=== PATIENT | female | born 1965 ===

== ENCOUNTER 2018-07-03 03:10 | Inpatient (IN) | payer BC ==
[2018-07-03] MEDS ORDERED: Famotidine/PF 20 mg/2ml Vial ONE (03:42)
[2018-07-03] MEDS ORDERED: Ketorolac Tromethamine 30 MG/ML VIAL ONE (03:42)
[2018-07-03 04:03] LABS: #Basophils 0.1 thou/uL (0.0-0.2); #Eosinphils 0.3 thou/uL (0.0-0.7); #Lymphocytes 2.8 thou/uL (1.20-3.40); #Monocytes 1.2 thou/uL (0.11-0.59); %Basophils 0.7 % (0.0-1.0); %Eosinophils 1.9 % (0.0-10.0); %Lymphocytes 17.1 % (21.0-51.0); %Monocytes 7.2 % (0.0-10.0); %Neutrophils 73.1 % (42.0-75.0); Hemoglobin 15.3 g/dL (12.0-16.0); Mean Corpuscular Volume 96.9 fL (78.0-98.0); Mean Platelet Volume 8.5 fL (7.4-10.4); Platelet Count 217 thou/uL (130-400); RBC Distribution Width 11.9 % (11.5-14.5); Red Blood Cell (RBC) Count 4.64 mill/uL (4.20-5.40); White Blood Cell (WBC) Count 16.4 thou/uL (4.8-10.8)
[2018-07-03 04:13] LABS: ALT (SGPT) 25 U/L (8-55); AST (SGOT) 18 U/L (5-34); Albumin 4.2 g/dL (3.5-5.0); Alkaline Phosphatase 77 U/L (40-150); Anion Gap 16 mmol/L (10-20); BUN (Urea Nitrogen) 17 mg/dL (9.8-20.1); Bilirubin, Direct 0.2 mg/dL (0.1-0.3); Bilirubin, Total 0.4 mg/dL (0.2-1.2); Calc. Creatinine Clearance 0 mL/min (70-130); Calcium 9.8 mg/dL (7.8-10.44); Carbon Dioxide 25 mmol/L (22-29); Chloride 103 mmol/L (98-107); Estimated GFR-MDRD 69; Glucose 196 mg/dL (70-105); Potassium 3.9 mmol/L (3.5-5.1); Sodium 140 mmol/L (136-145)
[2018-07-03 04:46] LABS: Lipase 11020 U/L (8-78)
[2018-07-03] MEDS ORDERED: Ondansetron PF 4 MG/2 ML Vial IVP PRN (06:00)
[2018-07-03] MEDS ORDERED: Ondansetron ODT 4 MG TAB SL PRN (06:00)
[2018-07-03] MEDS ORDERED: Morphine 4 MG/ML VIAL SLOW IVP PRN ×2 (06:00→18:41)
--- NOTE | 2018-07-03 08:20 | ULT ---
PRELIMINARY REPORT/[facility]/EMERGENTY AFTER-HOURS PROCEDURE US Abdomen Limited, Right Upper Quadrant EXAM DATE/TIME: 07/03/2018 5:25 AM CLINICAL HISTORY: 53 years old, female; Pain and signs and symptoms; Nausea and vomiting; Abdominal pain; Other: Ruq pa in that radiates to back; Additional info: Dx; Pancreatitis TECHNIQUE: Real-time ultrasound of the abdomen with image documentation. Examination was focused on the right up per quadrant. COMPARISON: No relevant prior studies available. FINDINGS: Liver: Mildly enlarged with heterogeneous increased echogenicity consistent with steatosis. 3.2 cm ro und hypoechoic lesion posteriorly in the right lobe, evaluation limited by depth and liver echogenici ty. Gallbladder: Unremarkable. No stones identified. Normal wall thickness. Common bile duct: Common duct measuring 8mm. Pancreas: Mostly obscured by bowel gas. Visualized portion grossly unremarkable. Right kidney: Subcentimeter probable cyst. No hydronephrosis. IMPRESSION: 1. Mild biliary ductal dilatation. 2. Hepatic steatosis. Incompletely evaluated 3.2 cm hypoechoic lesion in the right lobe. Thank you for allowing us to participate in the care of your patient. Dictated and Authenticated by: Ar Mcdermott MD 07/03/2018 6:00 AM Central Time ([place] & [place]) FINAL REPORT EMERGENCY AFTER HOURS STUDY ULTRASOUND ABDOMEN LIMITED: (RIGHT UPPER QUADRANT) DATE: 07-03-18 TIME: 5:42 A.M. HISTORY: 53-year-old female with right upper quadrant abdominal pain, nausea, vomiting. FINDINGS: Gallbladder: There is sludge in the gallbladder. This was not mentioned in the preliminary report by [facility]. No wall thickening or gallstones identified. No pericholecystic fluid. Common duct: Dilated to 8 mm. Liver: Diffusely increased echogenicity consistent with fatty liver. 3.2 cm round well circumscribed hypoechoic lesion in the posterior aspect of the right lobe. Pancreas: Obscured. Right kidney: Tiny cysts. No hydronephrosis. No major disagreement with the preliminary report by [facility]. Code QA. IMPRESSION: 1. Biliary ductal dilation, raising the possibility of obstruction of the common duct. 2. Hepatic steatosis. 3. A 3.2 cm hypoechoic lesion in the right lobe of the liver. 4. Recommend further evaluation with CT of abdomen with and without contrast (liver mass protocol), t o evaluate for obstructing mass, possibly at the head of the pancreas. HEMALATHA Sharma POS: MENDOZA
[2018-07-03] MEDS: Ketorolac Tromethamine 30 MG/ML VIAL IVP PRN ×3 (09:34→21:22)
[2018-07-03] MEDS: Lactated Ringer's 1,000 ML IV SCH ×3 (09:36→21:20)
[2018-07-03 10:07] VITALS: BMI 28.2
--- NOTE | 2018-07-03 18:01 | CON ---
DATE OF CONSULTATION: 07/03/2018 REASON FOR CONSULTATION: Pancreatitis. HISTORY OF PRESENT ILLNESS: Zoey Small is a 53-year-old woman with a history of diabetes and hypertension, and hyperlipidemia. She has no prior history of significant gastrointestinal, liver, or pancreatic disease. She was admitted to the hospital early this morning with her first episode of acute pancreatitis. She states that she was in her normal state of health until about 10 o'clock last night when she had sudden onset and then gradually worsening abdominal pain. This started in the right upper quadrant, but quickly spread to involve the epigastrium and entire upper abdomen, was associated with nausea and several episodes of nonbloody emesis. The pain is constant, but with significant exacerbations and prompted her presentation. She was found to have an elevated lipase level with normal LFTs and abdominal ultrasound showed normal gallbladder with no stones or sludge, but mild common bile duct dilation to 8 mm. She is currently doing very well after receiving analgesics. She is getting 200 mL of IV fluids per hour and her pain level is significantly decreased. She says this has never happened before. She has no prior history of gallbladder issues. She does drink alcohol but just 2 to 3 drinks per day. She does smoke cigarettes as well 1 pack per day. REVIEW OF SYSTEMS: Full review of systems including constitutional, head, eyes, ears, nose, throat, GI, , cardiovascular, respiratory, musculoskeletal, and neurologic systems are negative except as noted in the HPI. PAST MEDICAL HISTORY: Diabetes, hyperlipidemia, hypertension, anxiety, and . SOCIAL HISTORY: She does smoke 1 pack cigarettes per day. She will drink a couple of drinks most days of the week, usually beer. ALLERGIES: SULFA. OUTPATIENT MEDICATIONS: 1. Metformin. 2. Aspirin 81 mg daily. 3. Simvastatin. 4. Zoloft. 5. Lisinopril/hydrochlorothiazide. PHYSICAL EXAMINATION: VITAL SIGNS: Temperature 97.7, pulse 69, blood pressure 128/77, and 95% oxygen saturation on room air. GENERAL: A 53-year-old woman lying in bed comfortably, in no distress. SKIN: No jaundice. No rashes were palpable. EYES: No scleral icterus. Extraocular movements intact. ENT: Mucous membranes moist. No oral lesions. LYMPH: No submandibular or supraclavicular lymphadenopathy. THYROID: Nontender to palpation. HEART: Regular rate and rhythm. LUNGS: Clear to auscultation bilaterally. ABDOMEN: Bowel sounds are hypoactive, but present. The abdomen is soft and tender to palpation in the upper abdomen. No guarding or rebound tenderness. EXTREMITIES: No peripheral edema. VESSELS: Radial pulses 2+ bilaterally. NEUROLOGIC: Cranial nerves 2 to 12 intact bilaterally. No focal deficits. LABORATORY STUDIES: WBC 16.4, hemoglobin 15.3, and platelets 217. Sodium 140, potassium 3.9, BUN 17, creatinine 0.85, and glucose 196. LFTs all normal with total bilirubin 0.4, alkaline phosphatase 77, AST 18, ALT 25, albumin 4.2, and lipase is elevated to 11,020. IMAGING STUDIES: Abdominal ultrasound demonstrates normal gallbladder with no stones identified. Normal wall thickness. The common bile duct measures 8 mm. There is some hepatomegaly with steatosis and there is a 3.2 cm hypoechoic lesion posteriorly in the right lobe with limited evaluation. ASSESSMENT AND PLAN: 1. Acute pancreatitis, first episode, likely secondary to alcohol. 2. Biliary dilation, with normal LFTs. This is the patient's first episode of pancreatitis. All of her lab and clinical parameters are very favorable. Hopefully, this will be a mild self-limited episode and she will continue to do well with supportive care. Agree with the IV fluids, antiemetics and analgesics as needed. Regarding the etiology of her pancreatitis, I would favor probably alcohol-induced pancreatitis. Of note, she is also taking a thiazide diuretic and thought should be given to discontinuing this. I do note the mild biliary dilation 8 mm, but also note LFTs are normal, so this does not really fit with biliary pancreatitis. That being said, given the biliary dilation, I think it would be reasonable to get a magnetic resonance cholangiopancreatography, which would be more sensitive for an obstructing common duct stone. I have gone ahead and ordered this. Magnetic resonance cholangiopancreatography may also shed light on this indeterminate small liver lesion. Thank you for the consultation. GI will follow along. Job ID: [id number]
[2018-07-03] MEDS ORDERED: Ondansetron PF 4 MG/2 ML Vial SLOW IVP PRN (18:42)
--- NOTE | 2018-07-03 19:24 | MRI ---
MRI OF THE ABDOMEN WITHOUT CONTRAST 07/03/18 INDICATION: History of pancreatitis, common bile duct dilatation, concern for common bile duct stone. COMPARISON: Right upper quadrant ultrasound dated 07/03/18 at 5:25 a.m. TECHNIQUE: Multiplanar and multisequence MR images were obtained of the abdomen without IV contrast utilizing MR CP protocol. FINDINGS: There is moderate dilatation of the common bile duct measuring up to 1 cm. There is some smooth taper ing of the distal aspect common bile duct near the ampulla. No visible intraluminal stone is evident. No intraluminal stone is evident within the gallbladder. There is mild intrahepatic biliary ductal d ilatation. There is prominent edema within the peripancreatic retroperitoneal space. There is a 2.8 cm right adrenal adenoma which likely corresponds to the lesion described in the right hepatic lobe. There is prominent fatty infiltration of the liver. S mall suspected cysts seen involving the inferior pole of the right kidney. Spleen is normal appearing . Bone marrow signal intensity is normal appearing. IMPRESSION: 1. Moderate dilatation of the common bile duct with mild intrahepatic biliary ductal dilatation. No visible CBD stone is evident. There is some smooth tapering of the distal common bile duct seen a t the level of the ampulla, some of which may be related to edematous changes from the pancreatitis p resent. No drainable fluid collection is grossly evident. No cholelithiasis. 2. Right adrenal adenoma. This corresponds to the previously described right hepatic lobe lesion seen on the right upper quadrant ultrasound performed earlier on 07/03/18. 3. Fatty liver. 4. Small right renal cysts. POS: OFF
--- NOTE | 2018-07-03 21:30 | HP ---
CHIEF COMPLAINT: Abdominal pain. HISTORY OF PRESENT ILLNESS: Zoey is a 53-year-old female patient, who presented here with severe abdominal pain that started at the right flank and got across the middle of abdomen, severe on a scale of 10/10, associated with vomiting. The patient denies any significant alcohol consumption prior to this episode of pain. Has never had these episodes of pain. On evaluation in the ER, the patient was noted with severely elevated lipase at 11,000. The patient was then diagnosed with pancreatitis and sent over to us for further management. PAST MEDICAL HISTORY: Significant for hypertension, diabetes, dyslipidemia, and anxiety. MEDICATIONS: Of note, the patient is on hydrochlorothiazide. Medications reviewed and as documented on [employer]. ALLERGIES: TO SULFA. FAMILY HISTORY: No family history of pancreatic disease. SOCIAL HISTORY: The patient is . The patient use alcohol, positive tobacco usage. REVIEW OF SYSTEMS: As documented in the body of history. All the other systems were reviewed and found not to be significantly related to presenting illness. PHYSICAL EXAMINATION: GENERAL: The patient was found not to be in any obvious distress. VITAL SIGNS: Following vital signs; afebrile temperature 97.7, pulse 69, respiratory rate of 20, O2 saturation of 95% with blood pressure 128/77. HEENT: Unremarkable. CARDIOVASCULAR SYSTEM: First and second heart sounds were heard. RESPIRATORY SYSTEM: Clear to auscultation. DIGESTIVE SYSTEM: Revealed a benign abdomen with positive bowel sounds. EXTREMITIES: No peripheral edema. SKIN: No new gross rash. LYMPHATICS: No peripheral lymphadenopathy. GASTROINTESTINAL: Reveals positive bowel sounds with some areas of tenderness, otherwise unremarkable. IMPRESSION: 1. Acute pancreatitis, query cause, possibly related to hydrochlorothiazide versus other potential structural anomaly. 2. Hypertension. 3. Dyslipidemia. 4. Diabetes mellitus. 5. Tobacco dependence. PLAN: 1. Discontinue hydrochlorothiazide. 2. MRCP per Gastroenterology to further evaluate the pancreatic head and the biliary system. 3. The patient to remain n.p.o. for now. 4. IV fluids. 5. Further management to be dependent on the clinical course. Job ID: [id number]
[2018-07-04] MEDS: Lactated Ringer's 1,000 ML IV SCH ×4 (02:15→23:31)
[2018-07-04] MEDS: Ketorolac Tromethamine 30 MG/ML VIAL IVP PRN (03:43)
[2018-07-04] MEDS ORDERED: Ondansetron PF 4 MG/2 ML Vial IVP PRN (07:34)
[2018-07-04] MEDS ORDERED: Eucerin (Mineral Oil/Petrolatum,White) 30 gm Jar TOP PRN (07:34)
[2018-07-04] MEDS ORDERED: Artificial Tears 18 DROP/0.9 ML EA EYE PRN (07:34)
[2018-07-04] MEDS ORDERED: Bisacodyl 10 MG SUPP PR PRN (07:34)
[2018-07-04] MEDS ORDERED: Ondansetron ODT 4 MG TAB PO PRN (07:34)
[2018-07-04] MEDS ORDERED: Sodium Chloride 0.65% Nasal 44 ML BOT EA NARE PRN (07:34)
[2018-07-04] MEDS ORDERED: Acetaminophen 650 MG Suppository PR PRN (07:34)
[2018-07-04] MEDS ORDERED: hydrALAZINE 20 MG/ML VIAL SLOW IVP PRN (07:34)
[2018-07-04] MEDS ORDERED: Dextrose 5% in Water 1,000 ML IV PRN (07:36)
[2018-07-04] MEDS ORDERED: Dextrose 50% Abboject 50 ML SYRINGE SLOW IVP PRN (07:36)
[2018-07-04] MEDS ORDERED: HumaLOG 300 UNITS/3 ML VIAL SC PRN ×2 (07:36)
[2018-07-04] MEDS ORDERED: Ketorolac Tromethamine 30 MG/ML VIAL IVP PRN (07:37)
[2018-07-04 08:35] LABS: ALT (SGPT) 16 U/L (8-55); AST (SGOT) 10 U/L (5-34); Albumin 3.4 g/dL (3.5-5.0); Alkaline Phosphatase 67 U/L (40-150); Anion Gap 12 mmol/L (10-20); BUN (Urea Nitrogen) 14 mg/dL (9.8-20.1); Bilirubin, Total 0.7 mg/dL (0.2-1.2); Calc. Creatinine Clearance 123 mL/min (70-130); Calcium 8.8 mg/dL (7.8-10.44); Carbon Dioxide 23 mmol/L (22-29); Chloride 107 mmol/L (98-107); Estimated GFR-MDRD Greater than 90; Globulin 1.9 g/dL (2.4-3.5); Glucose 126 mg/dL (70-105); Potassium 3.9 mmol/L (3.5-5.1); Protein, Total 5.3 g/dL (6.0-8.3); Sodium 138 mmol/L (136-145)
[2018-07-04 08:36] LABS: CRP (Inflammatory) 3.48 mg/dL (= or < 0.5); Cholesterol 150 mg/dl (< 200 Desired); HDL Cholesterol 30 mg/dL (>60 Neg Risk); LDL Cholesterol, Calculated 88 mg/dL; Lipase 212 U/L (8-78); Magnesium 1.7 mg/dL (1.6-2.6); Phosphorus 4.1 mg/dL (2.3-4.7); Triglycerides 158 mg/dL (Less than 150)
[2018-07-04] MEDS: Pantoprazole 40 MG VIAL IVP SCH (08:44)
[2018-07-04 08:46] LABS: #Eosinphils 0.2 thou/uL (0.0-0.7); #Lymphocytes 2.3 thou/uL (1.20-3.40); #Monocytes 0.6 thou/uL (0.11-0.59); %Basophils 0.6 % (0.0-1.0); %Eosinophils 2.4 % (0.0-10.0); %Lymphocytes 28.5 % (21.0-51.0); %Monocytes 7.5 % (0.0-10.0); Hemoglobin 12.2 g/dL (12.0-16.0); Mean Corpuscular HGB CONC 33.6 g/dL (32.0-36.0); Mean Corpuscular Hemoglobin 33.2 pg (27.0-31.0); Mean Corpuscular Volume 98.8 fL (78.0-98.0); Mean Platelet Volume 8.4 fL (7.4-10.4); Platelet Count 186 thou/uL (130-400); RBC Distribution Width 11.2 % (11.5-14.5); Red Blood Cell (RBC) Count 3.68 mill/uL (4.20-5.40); White Blood Cell (WBC) Count 8.2 thou/uL (4.8-10.8)
--- NOTE | 2018-07-04 10:52 | PDOC.PN ---
- Subjective Encounter Start Date: 07/04/18 Encounter Start Time: 08:20 -: old records requested/rev Patient seen and examined. No new complaints. No overnight events pt feels better, less abdominal pain, - Objective MAR Reviewed: Yes Vital Signs & Weight: Vital Signs (12 hours) Temp Pulse Resp BP Pulse Ox 07/04/18 08:45 93 L 07/04/18 07:31 97.8 F 75 20 120/70 93 L 07/04/18 04:00 97.8 F 62 18 136/74 95 07/04/18 00:00 98.1 F 71 17 149/78 H 94 L Weight Weight 175 lb Result Diagrams: 07/04/18 07:39 07/04/18 07:39 Radiology Reviewed by me: Yes (abdomen MRI noted) Phys Exam - Physical Examination Constitutional: NAD HEENT: PERRLA, moist MMs, sclera anicteric Neck: no JVD, supple Respiratory: no wheezing, no rales, no rhonchi Cardiovascular: RRR, no significant murmur, no rub Gastrointestinal: soft, non-tender, no distention, positive bowel sounds Musculoskeletal: no edema, pulses present Neurological: non-focal, normal sensation, moves all 4 limbs Psychiatric: normal affect, A&O x 3 Skin: no rash, normal turgor Dx/Plan (1) Acute pancreatitis Code(s): K85.90 - ACUTE PANCREATITIS WITHOUT NECROSIS OR INFECTION, UNSP Status: Acute Qualifiers: Pancreatitis type: alcohol induced (2) Dilation of biliary tract Code(s): K83.8 - OTHER SPECIFIED DISEASES OF BILIARY TRACT Status: Acute (3) Diabetes type 2, controlled Code(s): E11.9 - TYPE 2 DIABETES MELLITUS WITHOUT COMPLICATIONS Status: Chronic (4) Dyslipidemia Code(s): E78.5 - HYPERLIPIDEMIA, UNSPECIFIED Status: Chronic (5) Hypertension Code(s): I10 - ESSENTIAL (PRIMARY) HYPERTENSION Status: Chronic (6) Alcohol abuse Code(s): F10.10 - ALCOHOL ABUSE, UNCOMPLICATED Status: Chronic - Plan cont current plan of care, incentive spirometry * pt has improvement, will start clear liquid and then full liquid today * tomorrow repeat labs and advance to regular diet * medication reviewed as below * symptomatic treatment * spoke with GI * overall stable and improving * counselled to avoid alcohol. * home meds reconciled * DC HCTZ Review of Systems - Review of Systems ENT: negative: Ear Pain, Ear Discharge, Nose Pain, Nose Discharge, Nose Congestion, Mouth Pain, Mouth Swelling, Throat Pain, Throat Swelling, Other Respiratory: negative: Cough, Dry, Shortness of Breath, Hemoptysis, SOB with Excertion, Pleuritic Pain, Sputum, Wheezing Cardiovascular: negative: chest pain, palpitations, orthopnea, paroxysmal nocturnal dyspnea, edema, light headedness, other Gastrointestinal: negative: Nausea, Vomiting, Abdominal Pain, Diarrhea, Constipation, Melena, Hematochezia, Other Genitourinary: negative: Dysuria, Frequency, Incontinence, Hematuria, Retention , Other Musculoskeletal: negative: Neck Pain, Shoulder Pain, Arm Pain, Back Pain, Hand Pain, Leg Pain, Foot Pain, Other Skin: negative: Rash, Lesions, Stanley, Bruising, Other - Medications/Allergies Allergies/Adverse Reactions: Allergies Allergy/AdvReac Type Severity Reaction Status Date / Time Sulfa (Sulfonamide Allergy Verified 07/03/18 09:42 Antibiotics) Medications: Current Medications Acetaminophen (Tylenol) 650 mg ID Q4H PRN PRN Reason: Fever > 101 Artificial Tears (Tears Naturale) 2 drop EA EYE PRN PRN PRN Reason: Dry Eyes Bisacodyl (Dulcolax) 10 mg ID DAILYPRN PRN PRN Reason: Constipation Dextrose/Water (Dextrose 50%) 25 gm SLOW IVP PRN PRN PRN Reason: Hypoglycemia Glucagon (Glucagon) 1 mg IM PRN PRN PRN Reason: Hypoglycemia Hydralazine HCl (Apresoline) 10 mg SLOW IVP Q4H PRN PRN Reason: SBP > 180 and HR < 70 Lactated Ringer's (Lactated Ringer's) 1,000 mls @ 100 mls/hr IV .Q10H RUBY Last Admin: 07/04/18 07:15 Dose: 1,000 mls Dextrose/Water (D5w) 1,000 mls @ 0 mls/hr IV .Q0M PRN PRN Reason: Hypoglycemia Insulin Human Lispro (Humalog) 0 units SC .MODERATE SLIDING SC PRN PRN Reason: Moderate Correctional Scale Insulin Human Lispro (Humalog) 0 units SC .BEDTIME SLIDING SC PRN PRN Reason: Bedtime Correctional Scale Ketorolac Tromethamine (Toradol) 15 mg IVP Q6H PRN PRN Reason: Mild-Moderate Pain (1-5) Stop: 07/08/18 18:42 Last Admin: 07/04/18 10:47 Dose: 15 mg Mineral Oil/White Petrolatum (Eucerin Cream) 0 gm TOP BIDPRN PRN PRN Reason: Dry Skin Morphine Sulfate (Morphine) 4 mg SLOW IVP Q4H PRN PRN Reason: Severe Pain (7-10) Ondansetron HCl (Zofran) 4 mg SLOW IVP Q6H PRN PRN Reason: Nausea/Vomiting Ondansetron HCl (Zofran Odt) 4 mg PO Q6H PRN PRN Reason: Nausea/Vomiting Ondansetron HCl (Zofran) 4 mg IVP Q6H PRN PRN Reason: Nausea/Vomiting Pantoprazole Sodium (Protonix) 40 mg IVP DAILY [facility] Last Admin: 07/04/18 08:44 Dose: 40 mg Sodium Chloride (Flush - Normal Saline) 10 ml IVF Q12HR [facility] Last Admin: 07/04/18 08:45 Dose: 10 ml Sodium Chloride (Flush - Normal Saline) 10 ml IVF PRN PRN PRN Reason: Saline Flush Sodium Chloride ([place] Nasal [place] 0.65%) 0 ml EA NARE QIDPRN PRN PRN Reason: Nasal Congestion
--- NOTE | 2018-07-04 12:24 | PRG ---
DATE OF SERVICE: 07/04/2018 This is a GI inpatient daily progress note. SUBJECTIVE: Ms. Small is feeling a lot better today. The abdominal pain is much less. It is now more of a soreness across the upper abdomen. She has not had any nausea. She was able to tolerate coffee and juice this morning without any significant symptoms. She did take some Toradol within the past couple of hours. Her MRCP showed no evidence of any common bile duct stone. OBJECTIVE: VITAL SIGNS: Temperature 97.8, pulse 75, blood pressure 120/70, and 93% oxygen saturation on room air. GENERAL: No acute distress. HEART: Regular rate and rhythm. LUNGS: Clear to auscultation bilaterally. ABDOMEN: Soft. Bowel sounds are now present. Some tenderness to palpation in the upper abdomen, but no guarding or rebound tenderness. EXTREMITIES: No peripheral edema. LABORATORY STUDIES: Laboratory studies have all improved. Sodium 138, potassium 3.9, BUN 14, creatinine 0.65, glucose 199. Lipase is down to 212. Triglycerides only 158. CRP down to 3.48. Total bilirubin 0.7, alkaline phosphatase 67, AST 10, ALT 16. Hemoglobin 12.2, hematocrit 36.3, WBC 8.2, and platelets 186. IMAGING STUDIES: MRCP demonstrated mild common bile duct dilation, but no evidence of any CBD stone. No other significant abnormalities aside from some edematous changes of the pancreas. There is a 2.8 cm right adrenal adenoma, which corresponds to the lesion described on ultrasound, actually not involving the right hepatic lobe and there is a fatty liver. ASSESSMENT AND PLAN: 1. Acute pancreatitis, improving. Given the MRCP findings and normal LFTs, I do not think this is biliary in origin. Consider possibly related to alcohol or to her hydrochlorothiazide. I agree with discontinuing the hydrochlorothiazide and I advised her to avoid all alcohol for at least the next couple of months, if she does drink again to do so in moderation. With regard to the current episode, it seems to be rapidly improving. Agree with advancing her diet as tolerated. I think if she is tolerating her diet tomorrow and otherwise feeling okay, she could be potentially discharged from the hospital. Please call back anytime with questions or concerns. Job ID: [id number]
[2018-07-04] MEDS ORDERED: Acetaminophen 325 MG TAB PO PRN (22:29)
[2018-07-05] MEDS: Lactated Ringer's 1,000 ML IV SCH (00:14)
[2018-07-05 08:06] LABS: Hemoglobin A1c 6.7 % (4.0-6.0)
[2018-07-05] MEDS: Pantoprazole 40 MG VIAL IVP SCH (08:33)
[2018-07-05 08:37] LABS: ALT (SGPT) 18 U/L (8-55); AST (SGOT) 14 U/L (5-34); Alkaline Phosphatase 80 U/L (40-150); Anion Gap 15 mmol/L (10-20); BUN (Urea Nitrogen) 6 mg/dL (9.8-20.1); Bilirubin, Total 0.7 mg/dL (0.2-1.2); Calc. Creatinine Clearance 102 mL/min (70-130); Calcium 9.2 mg/dL (7.8-10.44); Carbon Dioxide 24 mmol/L (22-29); Chloride 106 mmol/L (98-107); Estimated GFR-MDRD 77; Globulin 2.9 g/dL (2.4-3.5); Glucose 144 mg/dL (70-105); Potassium 4.2 mmol/L (3.5-5.1); Protein, Total 6.9 g/dL (6.0-8.3); Sodium 141 mmol/L (136-145)
[2018-07-05] MEDS ORDERED: Lisinopril 20 MG TAB PO SCH (09:00)
[2018-07-05] MEDS ORDERED: Atorvastatin Calcium 10 MG TAB PO SCH (09:00)
--- NOTE | 2018-07-05 12:00 | DIS ---
DATE OF ADMISSION: 07/03/2018 DATE OF DISCHARGE: 07/05/2018 PRIMARY CARE PHYSICIAN: [facility] Call admission. DISCHARGE DISPOSITION: Home. PRIMARY DISCHARGE DIAGNOSIS: Acute pancreatitis. SECONDARY DISCHARGE DIAGNOSES: Hypertension, dyslipidemia, diabetes type 2, history of alcohol abuse. PRIMARY PROCEDURE/OPERATION: None. RADIOLOGICAL INVESTIGATION: Abdomen ultrasound reported as mild biliary ductal dilatation, fatty liver. Abdomen MRI showed biliary dilatation and findings suggestive of pancreatitis. SIGNIFICANT LABORATORY DATA: WBC 8.2, hemoglobin 12.2, platelet 186. Sodium 141, potassium 4.2, BUN 6, creatinine 0.78. Hemoglobin A1c 6.7. LFT normal. Lipase 212. Triglyceride 158. DISCHARGE MEDICATIONS: 1. Metformin XR 1500 mg p.o. evening. 2. Zoloft 25 mg p.o. at bedtime. 3. Zocor 20 mg p.o. at bedtime. 4. Lisinopril 20 mg p.o. daily. 5. Protonix 40 mg p.o. daily. CONTRAINDICATION: None. CODE STATUS: Full code. INPATIENT SENIOR TRAINER: Dr. Gardner was consulted while in hospital. TEST RESULTS PENDING ON DISCHARGE: None. ALLERGIES: SULFA DRUGS. DISCHARGE PLAN: Posthospital, the patient will follow up with primary care physician and Dr. Gardner as instructed. HOSPITAL COURSE: A 53-year-old female, who was admitted by Dr. Willis. Please see his H and P for further details. The patient presented to the hospital with acute epigastric abdominal pain. Her pain description was consistent with pancreatitis. This patient also had a significantly elevated lipase. She has history of alcohol use periodically and that was contributing to her pancreatitis. Initial abdominal ultrasound showed biliary dilatation. Subsequently, abdomen MRI showed mild biliary dilatation without any choledocholithiasis and consistent with acute pancreatitis. The patient was treated conservatively with IV fluid and p.o. pain control with narcotics. Subsequently, her lipase significantly improved. The patient's pain has also subsided. The patient was tolerating her diet well. We advanced diet slowly. GI team was following while in the hospital. We advised this patient to avoid alcohol products as well as we changed during this admission Prinzide to lisinopril only because there is known association of hydrochlorothiazide with pancreatitis. All new medication prescription was given to her. The patient is seen and examined at bedside today. REVIEW OF SYSTEMS: All review of systems reviewed with her and negative. PHYSICAL EXAMINATION: VITAL SIGNS: Currently, temperature 97.7, pulse 69, respiratory rate 18, saturation 96% on room air, blood pressure 156/79, weight 175 pounds. GENERAL: The patient is currently alert, oriented, in no acute distress. HEAD: Normocephalic, atraumatic. EYES: Pupils are round, reactive to light. Extraocular muscle intact. ENT: Oropharynx within normal limits. Moist mucous membrane. No oral lesion. No pharyngeal erythema. No exudate. NECK: Supple. No JVD. No thyromegaly. No carotid bruit. LUNGS: Clear to auscultation without any rhonchi or rales. CARDIAC: S1 and S2 regular without any murmur. ABDOMEN: Soft and benign without any tenderness. EXTREMITIES: No edema. NEUROLOGIC: Nonfocal examination. CONDITION ON DISCHARGE: The patient is medically stable for discharge today. Job ID: [id number]
[2018-07-05 12:14] VITALS: BP 138/81; TEMP 97.9
== END 2018-07-05 12:38 | disposition home or self-care (01) | DRG 440 ==
LOC: SCSER 03:10 → SURG A 07:10
PROVIDERS: ADMIT Internal Medicine; ATTEND Internal Medicine
DX: K85.20 Alcohol induced acute pancreatitis without necrosis or infection (principal); I10 Essential (primary) hypertension; E11.9 Type 2 diabetes mellitus without complications; E78.5 Hyperlipidemia, unspecified; F41.9 Anxiety disorder, unspecified; F17.210 Nicotine dependence, cigarettes, uncomplicated; K83.8 Other specified diseases of biliary tract; F10.10 Alcohol abuse, uncomplicated; Z88.2 Allergy status to sulfonamides; Z79.82 Long term (current) use of aspirin; Z79.899 Other long term (current) drug therapy; Z79.84 Long term (current) use of oral hypoglycemic drugs
CPT/HCPCS: 36415; 36416; 74181; 76705; 80048; 80053; 80061; 80076; 83036; 83690; 83735; 84100; 85025; 86140; 93005; 96361; 96374; 96375; C9113; J1885; S0028